=== PATIENT | male | born 1945 | race Caucasian/White ===

== ENCOUNTER → 2025-07-02 | Outpatient (CLI) | payer MEDICARE, OTHER, SELFPAY ==
--- NOTE | 2025-07-02 13:13 | MRI_ITS ---
PROCEDURE: PELVIS W/WO CONTRAST, 07/02/2025 REASON FOR EXAM: ELEVATED PSA, 10.56 on 02/23/2025 per technologist report. TECHNIQUE: Multisequence multiplanar MRI pelvis was performed with and without IV contrast. IV Contrast: 22 mL Clariscan COMPARISON: None FINDINGS: Variable overall mild motion limitation. Prostate size: 5.7 x 4.1 x 4.6 cm, estimated volume 55.9 mL. Per the above provided PSA, PSA density is 0.189 ng/mL. Transition zone: PI-RADS 2 findings. Peripheral Zone: Background changes of likely prostatitis (PI-RADS 2). Additional lesions as below: *Lesion 1: Centered in the RIGHT posterior peripheral zone base extending into the posteromedial and posterolateral peripheral zone midgland, 2.5 cm (series 12, image 18). *T2 score: 5. *DWI score: 5 *DCE: Positive. *Overall PI-RADS: PI-RADS 5. *Extracapsular extension:No definite extracapsular extension, however, there is capsular abutment well over 1 cm which increases the risk of occult early/microscopic extracapsular extension. Note that this includes the region of the RIGHT neurovascular bundle, without definite involvement. *Lesion 2: LEFT posteromedial/posterolateral peripheral zone midgland to apex, 1.2 cm (series 12 image 21).. *T2 score: 3. *DWI score: 3. *DCE: N/A. *Overall PI-RADS: PI-RADS 3. *Extracapsular extension:Capsular abutment without gross extracapsular extension. Neurovascular bundles: As above. Seminal vesicles: Symmetrically atrophic. Bladder: Unremarkable. Lymph nodes: Unremarkable. Bones: No destructive or frankly suspicious bony lesions identified. Presumed degenerative signal in the subarticular superolateral LEFT acetabulum. Other: Diverticulosis.. MRI/Pelvis W/WO Contrast IMPRESSION: 1. 2.5 cm PI-RADS 5 lesion in the RIGHT posterior peripheral zone base to midgl and (lesion 1). 2. 1.2 cm PI-RADS 3 lesion in the LEFT posterior peripheral zone midgland to ap ex (lesion 2). 3. No definite extracapsular extension, however, there is capsular abutment by both lesions and well over 1 cm by lesion 1, which increases the risk of occult early/microscopic extracapsular extension. Note th at this includes the region of the RIGHT neurovascular bundle, without definite involvement. 4. No overt pelvic lymphadenopathy. 5. Additional description as above. Reading Location: [id number]
[2025-07-02 13:48] VITALS: BP 121/54; PULSE 61; RESP 16; O2SAT 96
[2025-07-02 14:00] VITALS: BP 113/52; PULSE 86; RESP 16; O2SAT 92
[2025-07-02 14:02] VITALS: BP 120/61; PULSE 85; RESP 16; O2SAT 92
[2025-07-02 14:15] VITALS: BP 113/52; PULSE 83; RESP 16; O2SAT 93
[2025-07-02 14:30] VITALS: BP 104/53; PULSE 85; RESP 16; O2SAT 94
== END | disposition home or self-care (01) ==
PROVIDERS: PCP Family Medicine
DX: R97.20 Elevated prostate specific antigen [PSA] (principal)
CPT/HCPCS: 72197; A9575; A4216